=== PATIENT | female | born 1995 | race Caucasian/White ===

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

== ENCOUNTER 2024-06-22 20:54 | Outpatient (CLI) | payer OTHER ==
[2024-06-22 21:56] LABS: Appearance,Urine Clear (Clear); Bacteria,Urine Rare /hpf; Bilirubin,Urine Negative (Negative); Blood,Urine Negative (Negative); Color,Urine Colorless; Glucose,Urine (UA) Negative (Negative); Ketones,Urine Negative (Negative); Leukocyte Esterase,Urine Trace (Negative); Nitrite,Urine Negative (Negative); Protein,Urine Negative (Negative); Specific Gravity,Urine 1.003 (1.001-1.035); Squamous Epithelial Cell,Urine 1 /hpf (0-4); Urobilinogen,Urine <2.0 mg/dL (<2.0); WBC,Urine 1 /hpf (0-5)
[2024-06-22 22:21] VITALS: BP 137/79; PULSE 70; RESP 16; TEMP 96.9
--- NOTE | 2024-07-23 09:32 | P.MSEPDOC ---
Presenting Problems - Arrival Data Date of Arrival on Unit: 06/22/24 Time of Arrival on Unit: 20:54 Mode of Transport: Ambulatory - Complaint OB-Reason for Admission/Chief Complaint: Headache, PIH Comment: Patient presents to triage with complaints of headache since 1399. Medical History - Information : 1 Para: 0 Term: 0 : 0 Abortions: Spontaneous or Elective: 0 Number of Living Children: 0 - Gestational Age Gestational Age by ANTONIO (wks/days): 40 Weeks and 1 Days Review of Systems - Review of Systems Constitutional: No problems Breast: No problems ENT: No problems Cardiovascular: No problems Respiratory: No problems Gastrointestinal: No problems Genitourinary: No problems Musculoskeletal: No problems Neurological: No problems Skin: No problems Vital Signs - Temperature Temperature: 96.9 F Temperature Source: Temporal Artery Scan - Pulse Pulse Oximetery Pulse Rate: 70 Pulse Assessment Method: Pulse Oximetry - Respirations Respiratory Rate: 16 Oxygen Delivery Method: Room Air O2 Sat by Pulse Oximetry: 97 - Blood Pressure Right Arm Blood Pressure: 137/79 Blood Pressure Mean: 98 Blood Pressure Source: Automatic Cuff Physician Notification - Physician Notified Physician Notified Date: 06/22/24 Physician Notified Time: 21:22 Physician: Megan Lou New Order Received: Yes (Discharge home) Maternal Triage Index - Maternal Triage Index Presenting for scheduled procedure w/no complaint: No - Stat/Priority 1 Stat Priority 1: No - Urgent/Priority 2 Urgent Priority 2: No - Prompt/Priority 3 Prompt Priority 3: Yes Criteria Met for Priority 3: Patient presents to triage with complaints of headache since 1399. Disposition - Disposition OB Disposition: Discharge to home Discharge Date: 06/22/24 Discharge Time: 22:21 I agree with the RN Medical Screening Exam: Yes Case reviewed; plan agreed upon as documented in EMR&OBIX.: Yes Diagnosis: HEADACHE, UNSPECIFIED
== END 2024-06-22 22:22 ==
LOC: FBPOP 20:54
PROVIDERS: ATTEND Obstetrics & Gynecology Obstetrics
DX: O26.893 Other specified pregnancy related conditions, third trimester (principal); R51.9 Headache, unspecified; Z3A.40 40 weeks gestation of pregnancy
CPT/HCPCS: 59025; 81001; 99215

== ENCOUNTER 2024-06-24 01:34 | Inpatient (IN) | payer OTHER ==
[2024-06-24] MEDS ORDERED: CARBOPROST TROMETHAMINE 250 MCG/ML 1 ML AMP IM PRN (03:13)
[2024-06-24] MEDS ORDERED: OXYTOCIN 10 UNIT/ML 1 ML VIAL IM PRN (03:13)
[2024-06-24] MEDS ORDERED: miSOPROStoL 200 MCG TAB PO PRN (03:13)
[2024-06-24] MEDS ORDERED: TERBUTALINE 1 MG/ML VIAL SQ PRN (03:13)
[2024-06-24] MEDS ORDERED: TRANEXAMIC 1,000 MG/100ML-NACL 1,000 MG in EMPTY BAG 1 BAG IV PRN (03:13)
[2024-06-24] MEDS ORDERED: METHYLERGONOVINE 0.2 MG/ML 1 ML AMP IM PRN (03:13)
[2024-06-24] MEDS ORDERED: miSOPROStoL 200 MCG TAB RECTAL PRN (03:13)
[2024-06-24 03:35] LABS: Basophils # (A) 0.02 10*3/uL (0.00-0.10); Basophils % (A) 0.2 %; Eosinophils # (A) 0.02 10*3/uL (0.04-0.35); Eosinophils % (A) 0.2 %; HCT 34.9 % (37.2-46.3); HGB 11.9 g/dL (12.0-15.0); Lymphocytes # (A) 1.42 10*3/uL (0.90-5.00); Lymphocytes % (A) 13.4 %; MCH 31.3 pg (27.0-32.0); MCHC 34.1 g/dL (32.0-37.0); MCV 91.8 fL (80.0-97.0); Mean Platelet Volume 12.8 fL (9.5-12.2); Monocytes % (A) 5.7 %; Neutrophils # (A) 8.49 10*3/uL (1.80-7.70); Neutrophils % (A) 79.9 %; Platelet Count 185 10*3/uL (140-440); RDW 13.1 % (11.5-14.5); WBC 10.61 10*3/uL (4.50-10.00)
[2024-06-24] MEDS: AMPICILLIN 2,000 MG in SODIUM CHLORIDE 0.9% 100 ML IVPB STA (04:20)
[2024-06-24] MEDS: LACTATED RINGERS 1,000 ML IV SCH (04:20)
--- NOTE | 2024-06-24 08:30 | P.HPOB ---
History of Present Illness H&P Date: 06/24/24 Chief Complaint: contractions Ms. Castro is a 29 year old at 40 weeks and 3 days gestation with EDC of 06/21/24 by LMP consistent with 10 week US who presents in labor. She did receive an epidural overnight and was started on Ampicillin for GBS prophylaxis by the covering physician. She had SROM at 730 revealing clear amniotic fluid. Her has been uncomplicated. The fetus is estimated in the 15%ile for weight based on a 32 week growth US. work-up: blood type A positive, antibody screen negative, rubella immune, VDRL non-reactive, HBsAg negative, HIV negative, HCV non-reactive, gonorrhea negative, chlamydia negative, 1 hour GTT wnl, GBS positive Past Medical History Past Medical History: No Reported History History of Any Multi-Drug Resistant Organisms: None Reported Past Surgical History: No Surgical Hx Reported Past Anesthesia/Blood Transfusion Reactions: No Reported Reaction Smoking Status: Never smoker Medications and Allergies Home Medications Medication Instructions Recorded Confirmed Type Vit No.179/Iron/Folic 1 tab PO DAILY 06/22/24 06/24/24 History [ Tablet] Allergies Allergy/AdvReac Type Severity Reaction Status Date / Time No Known Allergies Allergy Verified 06/22/24 21:32 Exam Vital Signs Temp Pulse Resp BP Pulse Ox 06/24/24 01:49 98.4 F 80 16 132/72 99 Intake and Output 06/23/24 06/24/24 06/24/24 22:59 06:59 14:59 Other: # Voids 2 Weight 81.647 kg Focused physical exam is performed. This is a healthy-appearing in no apparent distress. Breathing is non-labored. Abdomen is gravid and non-tender. Cervical exam is 4/100/-1. Rupture of forebag is undertaken with clear fluid noted. Extremities non-tender and non-edematous. heart tones are Category I and tocometer is graphing contractions every 2-4 minutes. Results Result Diagrams: 06/24/24 03:21 Abnormal Lab Results - Last 24 Hours (Table) 06/24/24 Range/Units 03:21 WBC 10.61 H (4.50-10.00) 10*3/uL RBC 3.80 L (4.10-5.20) 10*6/uL Hgb 11.9 L (12.0-15.0) g/dL Hct 34.9 L (37.2-46.3) % MPV 12.8 H (9.5-12.2) fL Immature Gran # 0.06 H (0.00-0.04) 10*3/uL Neutrophils # 8.49 H (1.80-7.70) 10*3/uL Eosinophils # 0.02 L (0.04-0.35) 10*3/uL Assessment and Plan Assessment: 29 year old at 40 weeks and 3 days presenting in labor, GBS positive Plan: Admit, clear liquid diet, expectant management at this time, antibiotics for GBS ppx, continuous EFM and tocometer.
[2024-06-24] MEDS: AMPICILLIN 1,000 MG in SODIUM CHLORIDE 0.9% 50 ML IVPB SCH (08:44)
[2024-06-24] MEDS ORDERED: ROPIVACAINE 5 MG/ML 30 ML VIAL ONE (09:19)
[2024-06-24] MEDS ORDERED: SODIUM CHLORIDE 0.9% 250 ML BAG ONE (09:19)
[2024-06-24] MEDS ORDERED: fentaNYL (PF) 50 MCG/ML 5 ML AMP ONE (09:19)
[2024-06-24] MEDS: OXYTOCIN 30 UNITS/500 ML NS 30 UNIT in SALINE 1 500ML.BAG IV SCH (14:34)
[2024-06-24] MEDS ORDERED: diphenhydrAMINE 50 MG/ML 1 ML VIAL IVP PRN ×2 (14:53)
[2024-06-24] MEDS ORDERED: ZOLPIDEM 5 MG TAB PO PRN (14:53)
[2024-06-24] MEDS ORDERED: diphenhydrAMINE 50 MG CAP PO PRN (14:53)
[2024-06-24] MEDS ORDERED: SIMETHICONE 80 MG CHEWABLE PO PRN (14:53)
[2024-06-24] MEDS ORDERED: HYDROCORTISONE 2.5% RECTAL CREAM 30 GM TUBE RECTAL PRN (14:53)
[2024-06-24] MEDS ORDERED: diphenhydrAMINE 25 MG CAP PO PRN (14:53)
[2024-06-24] MEDS ORDERED: LANOLIN CREAM 1 GM TUBE TOPICAL PRN (14:53)
--- NOTE | 2024-06-24 14:53 | P.PROBDLV ---
Vaginal Delivery Note - . Vaginal Delivery Note: DATE OF SERVICE: 06/24/2024 PROCEDURE: Normal Vaginal Delivery ATTENDING: Dr. Winifred Daniels MD ESTIMATED BLOOD LOSS: 200 mL FINDINGS: VFI, Apgars 8/8. Weight 7 pounds and 12 ounces (3535 grams) PROCEDURE: Ms. Castro is a 29 year old at 40 weeks and 3 days presenting to labor and delivery in labor. For further details, please review the admitting H&P. AROM was undertaken at 815 revealing clear amniotic fluid. The patient received epidural anesthesia per her request. The patient was completely dilated at 1353. She pushed effective with Category II heart tones. A viable female infant was delivered at 1430 over an intact perineum. The infant was placed on the maternal abdomen and bulb suctioned. The infant was noted to be spontaneously crying. Cord was clamped and cut after a 60-second delay. The infant was handed off to the pediatric team. Placenta was delivered whole with gentle cord traction at 1433. Oxytocin was started to facilitate uterine tone. Uterine fundus was found to be firm and below the umbilicus upon fundal massage. Thorough examination of the cervix, vagina, periurethral area, and perineum revealed bilateral labial lacerations. The labia were infiltrated with lidocaine and repaired with 3-0 Vicryl in a continuous fashion. The patient is stable and allowed to begin the bonding process.
[2024-06-24] MEDS: LIDOCAINE 0.5% (PF) 5 MG/ML (50 ML SDV) SQ PRN (19:42)
[2024-06-24] MEDS: BENZOCAINE/MENTHOL SPRAY 1 GM/SPRAY AEROSOL TOPICAL PRN (19:43)
[2024-06-24] MEDS: IBUPROFEN 800 MG TAB PO SCH (19:47)
[2024-06-24] MEDS: SENNOSIDES-DOCUSATE SODIUM 1 EACH TAB PO SCH (19:47)
[2024-06-24] MEDS: ACETAMINOPHEN TAB 500 MG TAB PO SCH (21:20)
[2024-06-25 06:32] LABS: Basophils # (A) 0.04 10*3/uL (0.00-0.10); Basophils % (A) 0.3 %; Eosinophils # (A) 0.04 10*3/uL (0.04-0.35); Eosinophils % (A) 0.3 %; HCT 30.1 % (37.2-46.3); HGB 10.1 g/dL (12.0-15.0); Lymphocytes % (A) 16.7 %; MCH 31.8 pg (27.0-32.0); MCHC 33.6 g/dL (32.0-37.0); MCV 94.7 fL (80.0-97.0); Mean Platelet Volume 12.3 fL (9.5-12.2); Monocytes # (A) 1.26 10*3/uL (0.20-1.00); Monocytes % (A) 8.8 %; Neutrophils # (A) 10.52 10*3/uL (1.80-7.70); Neutrophils % (A) 73.2 %; Platelet Count 163 10*3/uL (140-440); RBC 3.18 10*6/uL (4.10-5.20); RDW 13.2 % (11.5-14.5); WBC 14.36 10*3/uL (4.50-10.00)
--- NOTE | 2024-06-25 10:52 | P.PNOBGVD ---
Subjective - Subjective Principal diagnosis: s/p vaginal delivery Interval history: The patient is doing well this morning and had no acute events overnight. She has no complaints this morning. She reports minimal lochia, passing flatus, voiding without difficulty, ambulating, and eating/drinking without nausea or vomiting. She is her without difficulty. Baby has been spitting up quite a bit, which has concerned the parents overnight. She denies chest pain, shortness of breathing, fevers, or chills overnight. She denies pain or swelling in the legs. Patient reports: Reports appetite normal, Reports voiding normally, Reports pain well controlled, Reports ambulating normally : doing well, nursing well Objective - Latest Vital Signs Latest vital signs: Vital Signs Temp Pulse Resp BP Pulse Ox 06/25/24 08:00 98.0 F 67 18 119/75 06/25/24 04:00 68 19 06/25/24 00:00 97.9 F 68 19 124/81 98 06/24/24 20:00 98.5 F 109 H 16 117/70 100 06/24/24 16:51 86 18 126/58 06/24/24 16:38 80 18 125/50 06/24/24 16:23 90 18 123/58 06/24/24 16:08 80 16 126/57 06/24/24 15:53 79 16 123/56 06/24/24 15:38 90 16 122/60 06/24/24 15:23 99.0 F 80 16 120/59 06/24/24 15:08 97 16 118/57 98 06/24/24 14:53 97 16 06/24/24 14:45 98.9 F 108 H 16 135/63 98 Intake and Output 06/24/24 06/25/24 06/25/24 22:59 06:59 14:59 Intake Total 653.083 240 Output Total 240 Balance 413.083 240 Intake: Intake, IV Titration 173.083 Amount Oxytocin 30 Units/500 ml 173.083 Ns 30 unit In Saline 1 500ml.bag @ Per Protocol IV .Q0M [facility] Rx#:[id number] Oral 480 240 Output: Output, Quantitative 240 Blood Loss Other: Voiding Method Toilet # Voids 1 1 - Exam Extremities: Present: normal Abdomen: Present: normal appearance, soft Uterus: Present: normal, firm - Labs Labs: Abnormal Lab Results - Last 24 Hours (Table) 06/25/24 Range/Units 05:00 WBC 14.36 H (4.50-10.00) 10*3/uL RBC 3.18 L (4.10-5.20) 10*6/uL Hgb 10.1 L (12.0-15.0) g/dL Hct 30.1 L (37.2-46.3) % MPV 12.3 H (9.5-12.2) fL Immature Gran # 0.10 H (0.00-0.04) 10*3/uL Neutrophils # 10.52 H (1.80-7.70) 10*3/uL Monocytes # 1.26 H (0.20-1.00) 10*3/uL Assessment and Plan Assessment: 29 year old now PPD#1 s/p Plan: 1. . Patient meeting all milestones appropriately. VSS, Hgb stable. 2. Viable female infant. Doing well at bedside. Dispo: Patient considering staying an additional night.
[2024-06-26 08:41] VITALS: BP 120/74; PULSE 72; RESP 16; TEMP 97.9
== END 2024-06-26 15:20 | disposition home or self-care (01) | DRG 807 ==
LOC: FBPOP 01:34 → 4FBP 02:56
PROVIDERS: ADMIT Obstetrics & Gynecology; ATTEND Obstetrics & Gynecology
PROC: 10E0XZZ Delivery of Products of Conception, External Approach (ICD-10-PCS; principal; 2024-06-24)
PROC: 0HQ9XZZ Repair Perineum Skin, External Approach (ICD-10-PCS; 2024-06-24)
PROC: 10907ZC Drainage of Amniotic Fluid, Therapeutic from Products of Conception, Via Natural or Artificial Opening (ICD-10-PCS; 2024-06-24)
DX: O48.0 Post-term pregnancy (principal); Z37.0 Single live birth; O70.0 First degree perineal laceration during delivery; O99.824 Streptococcus B carrier state complicating childbirth; Z3A.40 40 weeks gestation of pregnancy
CPT/HCPCS: 59025; 85025; 86850; 86900; 86901; 99213

== ENCOUNTER 2024-06-27 14:17 | Emergency (ER) | payer OTHER ==
--- NOTE | 2024-06-27 14:42 | ED ---
Headache HPI - General Chief Complaint: Headache Stated Complaint: headache Time Seen by Provider: 06/27/24 14:32 Source: patient, RN notes reviewed Mode of arrival: ambulatory Limitations: no limitations - History of Present Illness Initial Comments: This is a 29-year-old female who presents to the emergency department for a headache. Patient had a vaginal delivery 06/24/24. She ended up having an epidural for pain control. States that shortly afterwards she started to develop a severe headache, which has since persisted. Pain is much worse when she tries to sit up, and it essentially resolves when she lays flat. She has been taking caffeine supplements and drinking coffee at home along with other migraine medications, however she has not had any relief. She was advised come to the emergency department for discussion of a blood patch. MD Complaint: headache - Related Data Home Medications Medication Instructions Recorded Confirmed Vit No.179/Iron/Folic 1 tab PO DAILY 06/22/24 06/24/24 [ Tablet] Allergies Allergy/AdvReac Type Severity Reaction Status Date / Time No Known Allergies Allergy Verified 06/27/24 14:23 Review of Systems ROS Statement: Those systems with pertinent positive or pertinent negative responses have been documented in the HPI. ROS Other: All systems not noted in ROS Statement are negative. Past Medical History Past Medical History: No Reported History History of Any Multi-Drug Resistant Organisms: None Reported Past Surgical History: No Surgical Hx Reported Past Anesthesia/Blood Transfusion Reactions: No Reported Reaction Smoking Status: Never smoker General Exam Limitations: no limitations General appearance: alert, in no apparent distress Head exam: Present: atraumatic, normocephalic, normal inspection Eye exam: Present: normal appearance, PERRL, EOMI. Absent: scleral icterus, conjunctival injection, periorbital swelling Respiratory exam: Present: normal lung sounds bilaterally. Absent: respiratory distress, wheezes, rales, rhonchi, stridor Cardiovascular Exam: Present: regular rate, normal rhythm Neurological exam: Present: alert, oriented X3, CN II-XII intact Psychiatric exam: Present: normal affect, normal mood Skin exam: Present: warm, dry, intact, normal color. Absent: rash Course Vital Signs 06/27/24 06/27/24 06/27/24 14:20 16:32 16:59 Temperature 98.1 F 98.4 F Pulse Rate 70 65 64 Respiratory 20 20 20 Rate Blood Pressure 136/80 155/91 150/91 O2 Sat by Pulse 99 99 99 Oximetry 06/27/24 17:33 Temperature 98.6 F Pulse Rate 76 Respiratory 20 Rate Blood Pressure 146/86 O2 Sat by Pulse 99 Oximetry Medical Decision Making - Medical Decision Making This is a 29 year old female who presents to the emergency department for a headache. Was pt. sent in by a medical professional or institution? @ -No Did you speak to anyone other than the patient for history? @ -No Did you review nursing and triage notes? @ -Yes, and I agree, it is accurate with regards to the patient's symptoms. Were old charts reviewed? @ -No Differential Diagnosis? @ -Differential Headache: Migraine, tension, cluster, carbon monoxide, central venous thrombosis, pension karma temporal arteritis, acute closure glaucoma, intercranial hemorrhage, mastoiditis, sinusitis, head injury, this is not meant to be an all-inclusive list. EKG interpreted by me (3pts min.)? @ -Not obtained X-rays interpreted by me (1pt min.)? @ -Not obtained CT interpreted by me (1pt min.)? @ -Not obtained U/S interpreted by me (1pt. min.)? @ -Not obtained What testing was considered but not performed? (CT, X-rays, U/S, labs)? Why? @ -None What meds were considered but not given? Why? @ -None Did you discuss the management of the patient with other professionals? @ -Yes, Dr. Zhang, anesthesiologist, who is agreeable to a blood patch Did you reconcile home meds? @ -No Was smoking cessation discussed for >3mins.? @ -No Was critical care preformed (if so, how long)? @ -No Were there social determinants of health that impacted care today? How? (Homelessness, low income, unemployed, alcoholism, drug addiction, transportation, low edu. Level, literacy, decrease access to med. care, shelter, rehab)? @ -No Was there de-escalation of care discussed even if they declined? (Discuss DNR or withdrawal of care, Hospice)? @ -No What co-morbidities impacted this encounter? (DM, HTN, Smoking, COPD, CAD, Cancer, CVA, Hep., AIDS, mental health diagnosis, sleep apnea, morbid obesity)? @ -None Was patient admitted / discharged? @ -Discharged. Given that the patient had already tried multiple remedies at home including caffeine and [id number] migraine medication, case was discussed with anesthesia who was agreeable to a blood patch. They came to the emergency department and performed a blood patch on the patient which she tolerated well. She remained flat and was monitored in the emergency department as required afterwards and was discharged home in stable condition with post care instructions. Case discussed with ED attending Dr. Christine. Return precautions reviewed in depth, the patient is instructed to return to the emergency department with any new, worsening, or concerning symptoms. Patient verbalized understanding. Undiagnosed new problem with uncertain prognosis? @ -None Drug Therapy requiring intensive monitoring for toxicity (Heparin, Nitro, Insuli n, Cardizem)? @ -None Were any procedures done? @ -None Diagnosis/symptom? @ -Spinal headache Acute, or Chronic, or Acute on Chronic? @ -Acute Uncomplicated (without systemic symptoms) or Complicated (systemic symptoms)? @ -Uncomplicated Side effects of treatment? @ -None Exacerbation, Progression, or Severe Exacerbation] @ -Not applicable Poses a threat to life or bodily function? @ -No Disposition Clinical Impression: Spinal headache Disposition: HOME SELF-CARE Instructions (If sedation given, give patient instructions): Epidural Blood Patch (DC) Additional Instructions: Return to the emergency department with any new, worsening, or concerning symptoms. Follow up with your primary care provider in 1-2 days. Is patient prescribed a controlled substance at d/c from ED?: No Referrals: None,Stated [Primary Care Provider] - 1-2 days
[2024-06-27] MEDS: SODIUM CHLORIDE 0.9% 1,000 ML IV ONE (15:07)
[2024-06-27 16:33] VITALS: RESP 20
--- NOTE | 2024-06-27 16:41 | P.PCN ---
Description of Procedure: Preprocedure diagnosis. Post dural puncture headache. Postprocedure diagnosis. As above. Procedure done. Lumbar epidural blood patch. Anesthesia. Local infiltration with 1% lidocaine subcutaneously. Continuous pulse ox, EKG, blood pressure and verbal communication was maintained. Blood loss. None. Indication. Patient had vaginal delivery of baby with epidural analgesia on 06/24/2024. Patient had headache since the delivery of the baby. Headache is postural in nature that is headache comes with sitting or standing position goes away significantly and laying flat position. Headache is associated with photophobia. No loss of vision. No other sensory or motor deficit. No loss of consciousness no vomiting. Discussed the nature of postdural puncture headache with the patient. Gave her options that pain usually goes away in 10 to 14 days by itself. Patient also tried caffeine fluids for the last 3 days along with analgesic pain medications. At this time patient wants to go ahead and have epidural blood patch. Told her that success rate is around 85%. Discussed with the patient of alternatives, procedure and complications which may include infection, bleeding, nerve damage, increased pain, headache all of which could be permanent. Patient understands and all questions were answered. Procedure note. After getting consent patient in sitting position. Back prepped with chlorhexidine and draped in sterile fashion. After injecting 5 mL of 1% lidocaine subcutaneously, a 20-gauge Touhy needle was introduced at L1-2 interspace which is the same level where epidural catheter was put in identified by small scab on the skin. With [id number] technique using a syringe filled with air. Negative CSF, negative blood, negative paresthesia. Patient's own blood was collected in sterile fashion, and patient's own blood was injected slowly through the Touhy needle into the epidural space until patient started to feel mild stretch in the back. Total approximately 20 milliliter of blood was injected in the epidural space. Epidural needle was taken out and bandage was applied. Disposition. Patient tolerated procedure well. No complication. Discharged home in stable condition.
[2024-06-27 18:12] VITALS: BP 144/76; PULSE 72; TEMP 98.1
== END 2024-06-27 18:11 | disposition home or self-care (01) ==
LOC: EC 14:17
DX: O89.4 Spinal and epidural anesthesia-induced headache during the puerperium (principal)
CPT/HCPCS: 62273; 96360; 99283